=== PATIENT | male | born 1960 | race Caucasian/White ===

== ENCOUNTER 2017-05-15 16:08 | Inpatient (IN) | payer OTHER ==
[~2017-05-15] VITALS: Ht 185.4 cm; Wt 85.4 kg
[2017-05-15] MEDS: ACETAMINOPHEN 1000 MG/100 ML 100 ML IV SCH ×2 (15:30→23:55)
[~2017-05-15 16:08] MED LIST: DEXAMETHASONE SOD PHOS 4 MG/ML VIAL IV ONE; LACTATED RINGER'S 1000 ML INJ 1,000 ML IV ONE; LIDOCAINE HCL 1% PF 5 ML SYRINGE OTHER ONE; ONDANSETRON HCL 4 MG/2 ML VIAL IV ONE; PROPOFOL 200 MG/20 ML AMP IV ONE; ROCURONIUM INJ 50 MG/5 ML SYRINGE IV PUSH ONE; SUCCINYLCHOLINE CHLORIDE 200 MG/10 ML VIAL IV ONE
[2017-05-15] MEDS ORDERED: IOHEXOL 350 MG/ML 10 ML VIAL (for RAD DIAG) IVCONTRAST ONE (16:09)
[2017-05-15] MEDS ORDERED: MORPHINE SULFATE 4 MG/ML INJ ONE ×2 (16:18→20:24)
[2017-05-15 16:25] VITALS: O2SAT 97
[2017-05-15 16:37] LABS: AUTOMATED NEUTROPHIL # 7.9 TH/MM3 (1.8-7.7); BASOPHIL # 0.1 TH/MM3 (0-0.2); BASOPHIL % 0.7 % (0.0-2.0); EOSINOPHIL # 0.5 TH/MM3 (0-0.4); EOSINOPHIL % 4.1 % (0.0-4.0); HEMATOCRIT 39.1 % (39.0-51.0); HEMOGLOBIN 13.4 GM/DL (13.0-17.0); LYMPH % 26.1 % (9.0-44.0); LYMPHOCYTE # 3.3 TH/MM3 (1.0-4.8); MEAN CELL VOLUME 97.6 FL (80.0-100.0); MEAN CORPUSCULAR HEMOGLOBIN 33.5 PG (27.0-34.0); MEAN CORPUSCULAR HGB CONC 34.3 % (32.0-36.0); MEAN PLATELET VOLUME 7.3 FL (7.0-11.0); MONO % 7.7 % (0.0-8.0); NEUT % 61.4 % (16.0-70.0); PLATELET COUNT 294 TH/MM3 (150-450); WHITE BLOOD COUNT 12.8 TH/MM3 (4.0-11.0)
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
[2017-05-15] MEDS ORDERED: PROPOFOL 200 MG/20 ML AMP ONE (16:44)
[2017-05-15 16:46] LABS: PROTHROMBIN TIME - PATIENT 10.2 SEC (9.8-11.6)
[2017-05-15 16:51] VITALS: O2SAT 94
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
[2017-05-15] MEDS ORDERED: LIDOCAINE HCL 1% PF 30 ML VIAL ONE (17:01)
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
--- NOTE | 2017-05-15 17:40 | RADRPT ---
EXAM DATE/TIME: 05/15/2017 16:55 [facility] COMPARISON: CHEST SINGLE AP, May 15, 2017, 16:12. INDICATIONS : Left sided chest tube placement. MEDICAL HISTORY : None. SURGICAL HISTORY : None. ENCOUNTER: Subsequent ACUITY: 1 day PAIN SCORE: 10/10 LOCATION: Left chest FINDINGS: Left chest drainage tube has been placed with the tip projected at the upper medial chest. No pneumo thorax seen on this supine view of the chest. Several left rib fractures. Left clavicular and left scapular fractures. Mediastinal structures are in the midline. Both hemidiaphragms well delineated. Ill-defined areas of non-consolidative opacity in the upper and lower left lung. CONCLUSION: Interval placement of left chest tube with tip in the medial apex. No pneumothorax seen on this supine view. Kit Lopez MD on May 15, 2017 at 17:37 Board Certified Radiologist. This report was verified electronically.
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
[2017-05-15] MEDS ORDERED: MISCELLANEOUS NURSING INFORMATION XX SCH (17:45)
[2017-05-15] MEDS ORDERED: MAGNESIUM HYDROXIDE SUSP 30 ML CUP PO PRN (17:45)
[2017-05-15] MEDS ORDERED: BISACODYL 10 MG SUPP RECTAL PRN (17:45)
[2017-05-15] MEDS ORDERED: SENNOSIDES 8.6 MG TAB PO PRN (17:45)
[2017-05-15] MEDS ORDERED: CHLORHEXIDINE GLUCONATE 2 % 1 PACK (2 CLOTHS) TOP PRN (17:45)
[2017-05-15] MEDS ORDERED: ONDANSETRON HCL 4 MG/2 ML VIAL IV PUSH PRN (17:45)
[2017-05-15] MEDS ORDERED: BUPIVACAINE HCL PF 0.25% 30 ML VIAL ONE (18:10)
[2017-05-15] MEDS ORDERED: VANCOMYCIN HCL 1000 MG VIAL ONE (18:10)
[2017-05-15] MEDS ORDERED: HYDROmorphone HCL PF 2 MG/ML VIAL IV PRN (18:15)
[2017-05-15 18:25] VITALS: BP 138/68; PULSE 105; RESP 24; TEMP 98; O2SAT 95
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
[2017-05-15] MEDS ORDERED: GENTAMICIN SULFATE 80 MG/2 ML VIAL ONE (18:57)
[2017-05-15] MEDS ORDERED: SILVER SULFADIAZINE 1% CR 50 GM JAR TOPICAL ONE (19:00)
[2017-05-15] MEDS ORDERED: RESP: ALBUTEROL 2.5 MG/3 ML NEB (SCH) ONE (20:15)
[2017-05-15] MEDS ORDERED: MIDAZOLAM HCL 2 MG/2 ML VIAL ONE (20:24)
[2017-05-15] MEDS ORDERED: diphenhydrAMINE HCL 25 MG CAP PO PRN (20:30)
[2017-05-15] MEDS ORDERED: SODIUM CHLORIDE 0.9% FLUSH 10 ML FLUSH IV FLUSH PRN (20:30)
[2017-05-15] MEDS ORDERED: Post-op Orders (for Pharmacy) XX ONE (20:30)
--- NOTE | 2017-05-15 20:38 | HHI.PR ---
Immediate Post Op Note Procedure Date: May 15, 2017 Pre Op Diagnosis: Left ankle laceration Post Op Diagnosis: Left ankle laceration Surgeon: Gay Guerrero Ekg/Ecg Technician(s): None Procedure: Left ankle debridement and irrigation with laceration repair Findings: Subcutaneous avulsion off of plantar calcaneus Additional Information: None Complications: None Specimen(s) removed: None Estimated blood loss: Less than 5 cc Anesthesia: General Drains: None Patient to: PACU (Patient tolerated procedure and anesthesia well he was transferred to PACU with vital signs stable and neurovascular status intact to the left foot) Patient Condition: Gay Estrada DPM May 15, 2017 20:38
[2017-05-15] MEDS ORDERED: DO NOT ADM ANY ANTICOAGULANT DRUGS PRN (20:45)
[2017-05-15 21:00] VITALS: BP 144/73; PULSE 98; RESP 18; TEMP 98.7; O2SAT 96
[2017-05-15] MEDS ORDERED: SODIUM CHLOR 0.9% 1000 ML INJ 1,000 ML IV ONE (21:00)
[2017-05-15] MEDS: FAMOTIDINE 20 MG/2 ML VIAL IV PUSH SCH (21:00)
[2017-05-15] MEDS: DOCUSATE SODIUM 50 MG/SENNA 8.6 MG TAB PO SCH (21:22)
[2017-05-15] MEDS: SODIUM CHLOR 0.9% 1000 ML INJ 1,000 ML IV SCH (21:23)
[2017-05-15 22:00] VITALS: PULSE 97
[2017-05-15] MEDS: levETIRAcetam INJ 500 MG in SODIUM CHLORIDE 0.9% INJ 100 ML IV SCH (22:05)
[2017-05-15] MEDS: SODIUM CHLORIDE 0.9% FLUSH 10 ML FLUSH IV FLUSH SCH (22:06)
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
[2017-05-16] VITALS (9 sets, daily range): BP systolic 120–136; BP diastolic 64–77; PULSE 90–108; RESP 12–20; TEMP 98.3–99.2; O2SAT 93–98
[2017-05-16] MEDS: HYDROmorphone HCL PF 2 MG/ML VIAL IV PRN ×4 (03:06→20:22)
[2017-05-16] MEDS: GENTAMICIN 80 MG PREMIX 100 ML IV SCH ×3 (03:06→18:31)
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
[2017-05-16] MEDS: SODIUM CHLOR 0.9% 1000 ML INJ 1,000 ML IV SCH ×2 (04:00→12:27)
[2017-05-16] MEDS ORDERED: CHLORHEXIDINE GLUCONATE 2 % 1 PACK (2 CLOTHS) TOP SCH (04:00)
[2017-05-16] MEDS: ACETAMINOPHEN 1000 MG/100 ML 100 ML IV SCH ×2 (06:00→11:24)
--- NOTE | 2017-05-16 06:23 | RADRPT ---
EXAM DATE/TIME: 05/16/2017 05:44 [facility] COMPARISON: CT BRAIN W/O CONTRAST, May 15, 2017, 16:30. INDICATIONS : Follow up intracerebral hemorrhage. RADIATION DOSE: 52.99 CTDIvol (mGy) MEDICAL HISTORY : Non-responsive. SURGICAL HISTORY : Non-responsive. ENCOUNTER: Subsequent ACUITY: 1 day PAIN SCALE: Non-responsive LOCATION: cranial TECHNIQUE: Multiple contiguous axial images were obtained of the head. Using automated exposure control and adj ustment of the mA and/or kV according to patient size, radiation dose was kept as low as reasonably a chievable to obtain optimal diagnostic quality images. DICOM format image data is available electro nically for review and comparison. FINDINGS: Right temporal parenchymal hemorrhagic contusion is noted, a small amount of blood in the sylvian fis sure on the right and in the cortical sulci on the right characteristic of subarachnoid hemorrhage. T here is no midline shift. Left zygomatic arch, anterior wall temporomandibular joint, left temporal b one and left parietal calvarial fractures again seen. There is fluid in left mastoid air cells. CONCLUSION: Subarachnoid hemorrhage is visualized on the right with stable right temporal bleed. Miguel Sandra MD on May 16, 2017 at 6:19 Board Certified Radiologist. This report was verified electronically.
[2017-05-16 07:10] LABS: PROTHROMBIN TIME - PATIENT 10.6 SEC (9.8-11.6)
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
[2017-05-16] MEDS: FAMOTIDINE 20 MG/2 ML VIAL IV PUSH SCH ×2 (09:57→20:20)
[2017-05-16] MEDS: ALBUTEROL SULFATE 90 MCG/ACT HFA 8 GM INHALER INH PRN ×2 (09:57→14:30)
[2017-05-16] MEDS: DOCUSATE SODIUM 50 MG/SENNA 8.6 MG TAB PO SCH ×2 (09:57→20:20)
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
[2017-05-16] MEDS ORDERED: oxyCODONE/ACETAMINOPHEN 5 MG/325 MG TAB PO PRN (10:00)
[2017-05-16] MEDS: SODIUM CHLORIDE 0.9% FLUSH 10 ML FLUSH IV FLUSH SCH ×2 (10:03→20:21)
[2017-05-16] MEDS: levETIRAcetam INJ 500 MG in SODIUM CHLORIDE 0.9% INJ 100 ML IV SCH ×2 (10:47→20:21)
[2017-05-16] MEDS: METHOCARBAMOL 500 MG TAB PO SCH ×2 (10:55→18:30)
[2017-05-16] MEDS: LIDOCAINE HCL 5% PATCH T-DERMAL SCH (11:24)
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
[2017-05-16 14:20] LABS: AUTOMATED NEUTROPHIL # 5.4 TH/MM3 (1.8-7.7); BASOPHIL % 0.3 % (0.0-2.0); EOSINOPHIL % 0.5 % (0.0-4.0); HEMATOCRIT 34.1 % (39.0-51.0); HEMOGLOBIN 11.8 GM/DL (13.0-17.0); LYMPH % 15.9 % (9.0-44.0); LYMPHOCYTE # 1.2 TH/MM3 (1.0-4.8); MEAN CELL VOLUME 97.3 FL (80.0-100.0); MEAN CORPUSCULAR HEMOGLOBIN 33.8 PG (27.0-34.0); MEAN CORPUSCULAR HGB CONC 34.7 % (32.0-36.0); MEAN PLATELET VOLUME 7.5 FL (7.0-11.0); MONO % 9.6 % (0.0-8.0); MONOCYTE # 0.7 TH/MM3 (0-0.9); NEUT % 73.7 % (16.0-70.0); PLATELET COUNT 230 TH/MM3 (150-450); RED BLOOD COUNT 3.51 MIL/MM3 (4.50-5.90); WHITE BLOOD COUNT 7.3 TH/MM3 (4.0-11.0)
[2017-05-16] MEDS: oxyCODONE/ACETAMINOPHEN 10 MG/325 MG TAB PO PRN ×3 (14:30→22:26)
[2017-05-16 14:36] LABS: BICARBONATE 22.8 MEQ/L (21.0-32.0); CALCIUM 8.1 MG/DL (8.5-10.1); CREATININE 0.73 MG/DL (0.60-1.30); MAGNESIUM 2.1 MG/DL (1.5-2.5)
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
[2017-05-16] MEDS: MAGNESIUM HYDROXIDE SUSP 30 ML CUP PO SCH (20:20)
[2017-05-16] MEDS ORDERED: REMOVE OLD LIDOCAINE PATCH T-DERMAL SCH (21:00)
[2017-05-17] VITALS (7 sets, daily range): BP systolic 111–148; BP diastolic 67–77; PULSE 92–100; RESP 17–18; TEMP 97.2–98.3; O2SAT 92–95
[2017-05-17] MEDS: HYDROmorphone HCL PF 2 MG/ML VIAL IV PRN ×4 (00:06→20:50)
[2017-05-17] MEDS: METHOCARBAMOL 500 MG TAB PO SCH ×3 (03:08→17:35)
[2017-05-17] MEDS: oxyCODONE/ACETAMINOPHEN 10 MG/325 MG TAB PO PRN ×4 (03:09→23:10)
[2017-05-17] MEDS ORDERED: CHLORHEXIDINE GLUCONATE 2 % 1 PACK (2 CLOTHS) TOPICAL PRN (05:30)
[2017-05-17] MEDS ORDERED: SODIUM CHLORID 0.9% 500 ML IV PRN (05:30)
[2017-05-17] MEDS ORDERED: LACTATED RINGER'S 1000 ML IV PRN (05:30)
[2017-05-17] MEDS ORDERED: POVIDONE IODINE 5% (ANTISEPSIS KIT) 4 APPLICATIONS EACH NARE PRN (05:30)
--- NOTE | 2017-05-17 06:29 | RADRPT ---
EXAM DATE/TIME: 05/17/2017 05:23 [facility] COMPARISON: CHEST SINGLE AP, May 16, 2017, 2:59. INDICATIONS : Short of breath, pain left chest. Evaluate left chest tube MEDICAL HISTORY : pneumothorax, rib fractures SURGICAL HISTORY : chest tube ENCOUNTER: Subsequent ACUITY: 3 days PAIN SCORE: 9/10 LOCATION: Left chest FINDINGS: Left-sided chest tube again seen. Tiny left apical pneumothorax. Patchy basilar airspace disease. Car diomegaly. There are fractures of the left third and fifth posterior ribs. CONCLUSION: Tiny left apical pneumothorax. Miguel Sandra MD on May 17, 2017 at 6:27 Board Certified Radiologist. This report was verified electronically.
[2017-05-17] MEDS: FAMOTIDINE 20 MG/2 ML VIAL IV PUSH SCH ×2 (08:07→20:29)
[2017-05-17] MEDS: DOCUSATE SODIUM 50 MG/SENNA 8.6 MG TAB PO SCH ×2 (08:08→20:32)
[2017-05-17] MEDS: LIDOCAINE HCL 5% PATCH T-DERMAL SCH (08:08)
[2017-05-17] MEDS: SODIUM CHLORIDE 0.9% FLUSH 10 ML FLUSH IV FLUSH SCH ×2 (08:09→20:29)
[2017-05-17] MEDS: levETIRAcetam INJ 500 MG in SODIUM CHLORIDE 0.9% INJ 100 ML IV SCH ×2 (08:09→20:29)
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
[2017-05-17] MEDS: MAGNESIUM HYDROXIDE SUSP 30 ML CUP PO SCH ×2 (08:46→20:30)
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
[2017-05-17] MEDS: fentaNYL 50 MCG/HR PATCH T-DERMAL SCH (14:47)
[2017-05-17 21:15] LABS: AUTOMATED NEUTROPHIL # 5.8 TH/MM3 (1.8-7.7); BASOPHIL # 0.1 TH/MM3 (0-0.2); BASOPHIL % 0.7 % (0.0-2.0); EOSINOPHIL # 0.2 TH/MM3 (0-0.4); EOSINOPHIL % 2.1 % (0.0-4.0); HEMATOCRIT 32.2 % (39.0-51.0); LYMPH % 15.3 % (9.0-44.0); LYMPHOCYTE # 1.2 TH/MM3 (1.0-4.8); MEAN CELL VOLUME 97.7 FL (80.0-100.0); MEAN CORPUSCULAR HEMOGLOBIN 33.4 PG (27.0-34.0); MEAN CORPUSCULAR HGB CONC 34.2 % (32.0-36.0); MEAN PLATELET VOLUME 7.3 FL (7.0-11.0); MONO % 8.5 % (0.0-8.0); MONOCYTE # 0.7 TH/MM3 (0-0.9); NEUT % 73.4 % (16.0-70.0); PLATELET COUNT 216 TH/MM3 (150-450); RED CELL DISTRIBUTION WIDTH 13.3 % (11.6-17.2)
[2017-05-17 21:30] LABS: ALBUMIN 2.7 GM/DL (3.4-5.0); AST (GOT) 110 U/L (15-37); BICARBONATE 27.9 MEQ/L (21.0-32.0); BLOOD UREA NITROGEN 8 MG/DL (7-18); CALCIUM 8.3 MG/DL (8.5-10.1); CHLORIDE 103 MEQ/L (98-107); CREATININE 0.81 MG/DL (0.60-1.30); GLOMERULAR FILTRATION RATE 99 ML/MIN (>89); GLUCOSE,RANDOM 131 MG/DL (74-106); SODIUM (NA) 136 MEQ/L (136-145)
[2017-05-17 21:32] LABS: ALT (GPT) 46 U/L (12-78)
[2017-05-17 21:34] LABS: ALKALINE PHOSPHATASE 56 U/L (45-117); TOTAL BILIRUBIN ADULT 0.5 MG/DL (0.2-1.0)
[2017-05-18] VITALS (11 sets, daily range): BP systolic 117–138; BP diastolic 58–70; PULSE 90–104; RESP 17–20; TEMP 97–98.8; O2SAT 92–95
[2017-05-18] MEDS: METHOCARBAMOL 500 MG TAB PO SCH ×3 (03:26→18:31)
--- NOTE | 2017-05-18 05:52 | RADRPT ---
EXAM DATE/TIME: 05/18/2017 05:09 [facility] COMPARISON: CHEST SINGLE AP, May 17, 2017, 5:23. INDICATIONS : Short of breath. MEDICAL HISTORY : pneumothorax, rib fractures SURGICAL HISTORY : chest tube. ENCOUNTER: Subsequent ACUITY: 1 week PAIN SCORE: 0/10 LOCATION: Bilateral chest FINDINGS: Left sided chest tube and patchy bilateral airspace disease again seen. I do not see a pneumothorax. Cardiomegaly. CONCLUSION: No significant change has occurred. Miguel Sandra MD on May 18, 2017 at 5:50 Board Certified Radiologist. This report was verified electronically.
[2017-05-18 05:55] LABS: BASOPHIL % 0.4 % (0.0-2.0); EOSINOPHIL # 0.1 TH/MM3 (0-0.4); EOSINOPHIL % 1.4 % (0.0-4.0); HEMATOCRIT 32.2 % (39.0-51.0); HEMOGLOBIN 11.1 GM/DL (13.0-17.0); LYMPH % 9.6 % (9.0-44.0); LYMPHOCYTE # 0.9 TH/MM3 (1.0-4.8); MEAN CELL VOLUME 97.9 FL (80.0-100.0); MEAN CORPUSCULAR HEMOGLOBIN 33.8 PG (27.0-34.0); MEAN CORPUSCULAR HGB CONC 34.5 % (32.0-36.0); MEAN PLATELET VOLUME 6.9 FL (7.0-11.0); MONO % 6.2 % (0.0-8.0); MONOCYTE # 0.6 TH/MM3 (0-0.9); NEUT % 82.4 % (16.0-70.0); PLATELET COUNT 215 TH/MM3 (150-450); RED BLOOD COUNT 3.29 MIL/MM3 (4.50-5.90); RED CELL DISTRIBUTION WIDTH 13.3 % (11.6-17.2); WHITE BLOOD COUNT 9.7 TH/MM3 (4.0-11.0)
[2017-05-18 06:17] LABS: ALBUMIN 2.7 GM/DL (3.4-5.0); ALT (GPT) 44 U/L (12-78); AST (GOT) 102 U/L (15-37); BICARBONATE 28.6 MEQ/L (21.0-32.0); BLOOD UREA NITROGEN 9 MG/DL (7-18); CALCIUM 8.4 MG/DL (8.5-10.1); CHLORIDE 103 MEQ/L (98-107); CREATININE 0.72 MG/DL (0.60-1.30); GLOMERULAR FILTRATION RATE 113 ML/MIN (>89); GLUCOSE,RANDOM 120 MG/DL (74-106); SODIUM (NA) 137 MEQ/L (136-145)
[2017-05-18 06:20] LABS: ALKALINE PHOSPHATASE 55 U/L (45-117); TOTAL BILIRUBIN ADULT 0.6 MG/DL (0.2-1.0); TOTAL PROTEIN 5.8 GM/DL (6.4-8.2)
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
--- NOTE | 2017-05-18 08:07 | PD.POD ---
Subjective Podiatric Problems LATE ENTRY, PT SEEN 05/17/17 @ 1900 Pt is s/p left foot/ankle wound washout and closure by on 05/15/17. He states that he only has mild pain in the foot but feels like it ''goes to sleep'' easily when he rests in a dependent position. Pain score: 3 Past Med/Surg/Social History Social History Smoking Status: Former Smoker Objective Vital Signs Vital Signs Date Time Temp Pulse Resp B/P (MAP) Pulse Ox O2 Delivery O2 Flow Rate FiO2 05/18/17 04:30 98.0 103 20 117/58 (77) 93 05/18/17 00:40 97.0 104 19 138/70 (92) 92 05/18/17 00:03 102 05/17/17 20:30 Nasal Cannula 3.00 05/17/17 20:15 97.2 99 18 111/69 (83) 95 05/17/17 20:09 99 05/17/17 17:44 94 Nasal Cannula 2.00 05/17/17 16:00 97.7 99 17 115/67 (83) 94 05/17/17 15:47 16 05/17/17 13:53 16 05/17/17 12:33 16 05/17/17 12:00 98.3 100 17 148/70 (96) 95 Coded Allergies: No Known Allergies (Unverified , 05/15/17) Physical Exam Remarks Circumferential laceration to the left posterior heel from just anterior to the med mall to just anterior to the lat mall. All sutures intact and skin edges are well coapted. Mild maceration at borders. No erythema, no drainage. Assessment & Plan A/P 1) left heel laceration closure, 05/15/17 -Keep dressing clean, dry, and intact -Posterior splint ordered to avoid suture rupture -NWBing LLE -Keep LLE elevate while at rest -Will need bandage changed weekly -f/u with 5-7 days after d/c Akua Devine DPM May 18, 2017 08:07
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
[2017-05-18] MEDS: BACITRACIN TOP OINT 15 GM TUBE TOPICAL SCH ×2 (09:00→19:41)
[2017-05-18] MEDS: SODIUM CHLORIDE 0.9% FLUSH 10 ML FLUSH IV FLUSH SCH ×2 (09:00→19:42)
[2017-05-18] MEDS: DOCUSATE SODIUM 50 MG/SENNA 8.6 MG TAB PO SCH ×2 (09:18→19:41)
[2017-05-18] MEDS: MAGNESIUM HYDROXIDE SUSP 30 ML CUP PO SCH ×2 (09:19→19:41)
[2017-05-18] MEDS: oxyCODONE/ACETAMINOPHEN 10 MG/325 MG TAB PO PRN ×2 (09:19→18:30)
[2017-05-18] MEDS: levETIRAcetam 500 MG TAB PO SCH ×2 (09:19→19:41)
[2017-05-18] MEDS: FAMOTIDINE 20 MG TAB PO SCH ×2 (09:22→19:41)
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
[2017-05-18] MEDS: ENOXAPARIN SODIUM 30 MG/0.3 ML SYRINGE SQ SCH (14:33)
[2017-05-19] VITALS (8 sets, daily range): BP systolic 121–134; BP diastolic 60–63; PULSE 68–101; RESP 17–18; TEMP 97.2–98.9; O2SAT 95–97
[2017-05-19] MEDS: METHOCARBAMOL 500 MG TAB PO SCH ×3 (02:09→18:01)
[2017-05-19] MEDS: oxyCODONE/ACETAMINOPHEN 10 MG/325 MG TAB PO PRN ×5 (02:09→22:01)
[2017-05-19] MEDS: ENOXAPARIN SODIUM 30 MG/0.3 ML SYRINGE SQ SCH ×2 (02:09→14:00)
[2017-05-19 04:25] LABS: AUTOMATED NEUTROPHIL # 5.9 TH/MM3 (1.8-7.7); BASOPHIL % 0.6 % (0.0-2.0); EOSINOPHIL # 0.3 TH/MM3 (0-0.4); HEMATOCRIT 29.8 % (39.0-51.0); HEMOGLOBIN 10.3 GM/DL (13.0-17.0); LYMPH % 12.4 % (9.0-44.0); MEAN CELL VOLUME 97.4 FL (80.0-100.0); MEAN CORPUSCULAR HEMOGLOBIN 33.7 PG (27.0-34.0); MEAN CORPUSCULAR HGB CONC 34.6 % (32.0-36.0); MEAN PLATELET VOLUME 7.1 FL (7.0-11.0); MONO % 7.2 % (0.0-8.0); MONOCYTE # 0.6 TH/MM3 (0-0.9); NEUT % 75.8 % (16.0-70.0); PLATELET COUNT 209 TH/MM3 (150-450); RED BLOOD COUNT 3.06 MIL/MM3 (4.50-5.90); RED CELL DISTRIBUTION WIDTH 12.9 % (11.6-17.2); WHITE BLOOD COUNT 7.7 TH/MM3 (4.0-11.0)
[2017-05-19 04:49] LABS: ALBUMIN 2.4 GM/DL (3.4-5.0); AST (GOT) 81 U/L (15-37); BLOOD UREA NITROGEN 8 MG/DL (7-18); CALCIUM 8.3 MG/DL (8.5-10.1); CHLORIDE 100 MEQ/L (98-107); CREATININE 0.58 MG/DL (0.60-1.30); GLOMERULAR FILTRATION RATE 145 ML/MIN (>89); GLUCOSE,RANDOM 127 MG/DL (74-106); SODIUM (NA) 136 MEQ/L (136-145)
[2017-05-19 04:52] LABS: ALKALINE PHOSPHATASE 54 U/L (45-117); ALT (GPT) 47 U/L (12-78); TOTAL BILIRUBIN ADULT 0.6 MG/DL (0.2-1.0); TOTAL PROTEIN 5.7 GM/DL (6.4-8.2)
--- NOTE | 2017-05-19 07:17 | RADRPT ---
EXAM DATE/TIME: 05/19/2017 06:11 [place] COMPARISON: CHEST SINGLE AP, May 18, 2017, 5:09. INDICATIONS : Short of breath, evaluate left side chest tube MEDICAL HISTORY : pneumothorax, rib fractures SURGICAL HISTORY : chest tube ENCOUNTER: Subsequent ACUITY: 1 week PAIN SCORE: 5/10 LOCATION: Bilateral chest FINDINGS: A single view of the chest demonstrates bilateral patchy infiltrates are stable. There is a left-side d chest tube with its tip near the apex. No visible pneumothorax.. The cardiomediastinal contours ar e unremarkable. Osseous structures are intact. CONCLUSION: Patchy infiltrates throughout the lungs. Chest tube in good position. No evidence of pneumothorax . Miguel Ron MD on May 19, 2017 at 7:15 Board Certified Radiologist. This report was verified electronically.
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
[2017-05-19] MEDS: DOCUSATE SODIUM 50 MG/SENNA 8.6 MG TAB PO SCH ×2 (08:38→21:55)
[2017-05-19] MEDS: levETIRAcetam 500 MG TAB PO SCH ×2 (08:38→21:55)
[2017-05-19] MEDS: FAMOTIDINE 20 MG TAB PO SCH ×2 (08:38→21:55)
[2017-05-19] MEDS: MAGNESIUM HYDROXIDE SUSP 30 ML CUP PO SCH ×2 (08:39→21:55)
[2017-05-19] MEDS: SODIUM CHLORIDE 0.9% FLUSH 10 ML FLUSH IV FLUSH SCH ×2 (08:44→21:56)
[2017-05-19] MEDS: BACITRACIN TOP OINT 15 GM TUBE TOPICAL SCH ×2 (08:45→21:56)
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
[2017-05-19] MEDS: RESP: ALBUTEROL 2.5 MG/IPRATROPIUM 0.5 MG NEB (SCH) NEB ×2 (16:19→19:31)
[2017-05-20] VITALS (10 sets, daily range): BP systolic 130–145; BP diastolic 60–83; PULSE 81–92; RESP 17–20; TEMP 97.6–98.7; O2SAT 93–98
[2017-05-20] MEDS: ENOXAPARIN SODIUM 30 MG/0.3 ML SYRINGE SQ SCH ×2 (02:23→16:53)
[2017-05-20] MEDS: METHOCARBAMOL 500 MG TAB PO SCH ×3 (02:23→19:12)
[2017-05-20] MEDS ORDERED: ENDO10TA8 PO (06:42)
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
--- NOTE | 2017-05-20 07:00 | RADRPT ---
EXAM DATE/TIME: 05/20/2017 06:07 [facility] COMPARISON: CHEST SINGLE AP, May 19, 2017, 6:11. INDICATIONS : Follow up chest tube removal from left side MEDICAL HISTORY : pneumothorax, rib fractures, left shoulder SURGICAL HISTORY : chest tube ENCOUNTER: Subsequent ACUITY: 1 week PAIN SCORE: 8/10 LOCATION: Bilateral chest FINDINGS: There is a tiny left apical pneumothorax present with overall improvement in aeration of the lungs wi th mild interstitial process remaining. Previously seen left chest tube has been removed. The rest of the examination has not significantly changed. CONCLUSION: There is a tiny left apical pneumothorax. Shannan Arroyo MD on May 20, 2017 at 6:58 Board Certified Radiologist. This report was verified electronically.
[2017-05-20] MEDS: RESP: ALBUTEROL 2.5 MG/IPRATROPIUM 0.5 MG NEB (SCH) NEB ×4 (08:00→20:39)
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
[2017-05-20] MEDS: DOCUSATE SODIUM 50 MG/SENNA 8.6 MG TAB PO SCH ×2 (09:01→20:24)
[2017-05-20] MEDS: MAGNESIUM HYDROXIDE SUSP 30 ML CUP PO SCH ×2 (09:01→20:25)
[2017-05-20] MEDS: FAMOTIDINE 20 MG TAB PO SCH ×2 (09:01→20:24)
[2017-05-20] MEDS: levETIRAcetam 500 MG TAB PO SCH ×2 (09:01→20:24)
[2017-05-20] MEDS: BACITRACIN TOP OINT 15 GM TUBE TOPICAL SCH ×2 (09:02→20:32)
[2017-05-20] MEDS: SODIUM CHLORIDE 0.9% FLUSH 10 ML FLUSH IV FLUSH SCH ×2 (09:02→20:31)
--- NOTE | 2017-05-20 10:51 | RADRPT ---
EXAM DATE/TIME: 05/20/2017 10:37 [facility] COMPARISON: CT BRAIN W/O CONTRAST, May 16, 2017, 5:44. INDICATIONS : Subdural hematoma. RADIATION DOSE: 56.35 CTDIvol (mGy) MEDICAL HISTORY : Subdural hematoma. SURGICAL HISTORY : Hernia repair. ENCOUNTER: Subsequent ACUITY: 4 - 6 days PAIN SCALE: 2/10 LOCATION: Bilateral cranial TECHNIQUE: Multiple contiguous axial images were obtained of the head. Using automated exposure control and adj ustment of the mA and/or kV according to patient size, radiation dose was kept as low as reasonably a chievable to obtain optimal diagnostic quality images. DICOM format image data is available electro nically for review and comparison. FINDINGS: Problem specific findings: The examination demonstrates scattered foci of intraparenchymal hemorrhage involving the right tempor al lobe. These are compared to the previous study dated 05/16/17 and are similar in appearance. There is some increasing edema around these. No definite new areas of hemorrhage are seen. The ventricles a re normal in size and configuration. There is only minimal mass effect associated with the area of co ntusion. The appearance of the posterior fossa is unremarkable. The osseous structures of the skull demonstrate a minimally displaced fracture involving the left tem poral bone. There is fracture of the zygomatic arch on the left as well. CONCLUSION: 1. Intraparenchymal contusion involving the right temporal cortex with minimal subarachnoid hemorrhag e. This is relatively stable compared to previous exam. There has been a slight increase in the amoun t of edema surrounding this. 2. Known fractures involving the left temporal bone and zygomatic arch on the left. Roman Galicia MD on May 20, 2017 at 10:47 Board Certified Radiologist. This report was verified electronically.
[2017-05-20] MEDS: oxyCODONE/ACETAMINOPHEN 10 MG/325 MG TAB PO PRN ×2 (12:36→20:24)
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
[2017-05-20] MEDS: REMOVE OLD DURAGESIC (FENTANYL) PATCH T-DERMAL SCH (15:00)
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
[2017-05-20] MEDS: fentaNYL 50 MCG/HR PATCH T-DERMAL SCH (16:53)
[2017-05-21] VITALS (8 sets, daily range): BP systolic 129–139; BP diastolic 64–76; PULSE 76–86; RESP 18–20; TEMP 95.7–98.7; O2SAT 92–95
[2017-05-21] MEDS: METHOCARBAMOL 500 MG TAB PO SCH ×3 (03:02→20:26)
[2017-05-21] MEDS: ENOXAPARIN SODIUM 30 MG/0.3 ML SYRINGE SQ SCH ×2 (03:03→15:50)
[2017-05-21 04:34] LABS: BASOPHIL # 0.1 TH/MM3 (0-0.2); BASOPHIL % 0.6 % (0.0-2.0); EOSINOPHIL # 0.3 TH/MM3 (0-0.4); EOSINOPHIL % 4.2 % (0.0-4.0); HEMOGLOBIN 10.6 GM/DL (13.0-17.0); LYMPH % 11.6 % (9.0-44.0); LYMPHOCYTE # 0.9 TH/MM3 (1.0-4.8); MEAN CELL VOLUME 96.5 FL (80.0-100.0); MEAN CORPUSCULAR HGB CONC 34.2 % (32.0-36.0); MEAN PLATELET VOLUME 6.7 FL (7.0-11.0); MONO % 9.6 % (0.0-8.0); MONOCYTE # 0.8 TH/MM3 (0-0.9); PLATELET COUNT 291 TH/MM3 (150-450); RED BLOOD COUNT 3.21 MIL/MM3 (4.50-5.90); RED CELL DISTRIBUTION WIDTH 12.9 % (11.6-17.2); WHITE BLOOD COUNT 8.1 TH/MM3 (4.0-11.0)
[2017-05-21 04:58] LABS: BICARBONATE 28.5 MEQ/L (21.0-32.0); CALCIUM 8.7 MG/DL (8.5-10.1); CREATININE 0.65 MG/DL (0.60-1.30)
--- NOTE | 2017-05-21 06:47 | RADRPT ---
EXAM DATE/TIME: 05/21/2017 06:20 [place] COMPARISON: CHEST SINGLE AP, May 20, 2017, 6:07. INDICATIONS : Pneumothorax. MEDICAL HISTORY : Pneumothorax, rib fractures. SURGICAL HISTORY : chest tube ENCOUNTER: Subsequent ACUITY: 1 week PAIN SCORE: 9/10 LOCATION: Left chest FINDINGS: Multiple rib fractures are again seen without definite pneumothorax. There is hazy opacities in both lung bases part of it is technical due to motion, however mild interstitial process is difficult to e xclude. Slight left lung base consolidation is also difficult to exclude. CONCLUSION: No definite pneumothorax with haziness involving the lung bases as above. Shannan Arroyo MD on May 21, 2017 at 6:44 Board Certified Radiologist. This report was verified electronically.
[2017-05-21] MEDS: FAMOTIDINE 20 MG TAB PO SCH ×2 (08:40→21:52)
[2017-05-21] MEDS: DOCUSATE SODIUM 50 MG/SENNA 8.6 MG TAB PO SCH ×2 (08:40→21:52)
[2017-05-21] MEDS: MAGNESIUM HYDROXIDE SUSP 30 ML CUP PO SCH ×2 (08:40→21:00)
[2017-05-21] MEDS: levETIRAcetam 500 MG TAB PO SCH ×2 (08:40→21:52)
[2017-05-21] MEDS: RESP: ALBUTEROL 2.5 MG/IPRATROPIUM 0.5 MG NEB (SCH) NEB ×4 (08:40→20:04)
[2017-05-21] MEDS: SODIUM CHLORIDE 0.9% FLUSH 10 ML FLUSH IV FLUSH SCH ×2 (08:41→21:57)
[2017-05-21] MEDS: BACITRACIN TOP OINT 15 GM TUBE TOPICAL SCH ×2 (08:45→21:57)
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
[2017-05-21] MEDS: oxyCODONE/ACETAMINOPHEN 10 MG/325 MG TAB PO PRN ×2 (11:44→15:52)
[2017-05-22] VITALS (9 sets, daily range): BP systolic 120–137; BP diastolic 64–71; PULSE 72–88; RESP 17–18; TEMP 96.7–98.2; O2SAT 92–95
[2017-05-22] MEDS: METHOCARBAMOL 500 MG TAB PO SCH ×3 (03:04→18:42)
[2017-05-22] MEDS: ENOXAPARIN SODIUM 30 MG/0.3 ML SYRINGE SQ SCH ×2 (03:04→13:10)
[2017-05-22] MEDS: RESP: ALBUTEROL 2.5 MG/IPRATROPIUM 0.5 MG NEB (SCH) NEB ×4 (08:00→19:34)
[2017-05-22] MEDS: SODIUM CHLORIDE 0.9% FLUSH 10 ML FLUSH IV FLUSH SCH ×2 (09:00→20:27)
[2017-05-22] MEDS: levETIRAcetam 500 MG TAB PO SCH ×2 (09:13→20:19)
[2017-05-22] MEDS: oxyCODONE/ACETAMINOPHEN 10 MG/325 MG TAB PO PRN ×3 (09:13→18:40)
[2017-05-22] MEDS: DOCUSATE SODIUM 50 MG/SENNA 8.6 MG TAB PO SCH ×2 (09:13→20:28)
[2017-05-22] MEDS: FAMOTIDINE 20 MG TAB PO SCH ×2 (09:13→20:19)
[2017-05-22] MEDS: MAGNESIUM HYDROXIDE SUSP 30 ML CUP PO SCH ×2 (09:14→20:27)
[2017-05-22] MEDS: BACITRACIN TOP OINT 15 GM TUBE TOPICAL SCH ×2 (09:14→20:28)
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
[2017-05-23] MEDS: ENOXAPARIN SODIUM 30 MG/0.3 ML SYRINGE SQ SCH ×2 (02:51→14:11)
[2017-05-23] MEDS: METHOCARBAMOL 500 MG TAB PO SCH ×3 (02:51→18:10)
[2017-05-23] MEDS: oxyCODONE/ACETAMINOPHEN 10 MG/325 MG TAB PO PRN ×4 (02:52→16:12)
[2017-05-23 05:16] LABS: AUTOMATED NEUTROPHIL # 7.1 TH/MM3 (1.8-7.7); BASOPHIL % 0.4 % (0.0-2.0); EOSINOPHIL # 0.6 TH/MM3 (0-0.4); EOSINOPHIL % 6.4 % (0.0-4.0); HEMATOCRIT 32.7 % (39.0-51.0); HEMOGLOBIN 11.4 GM/DL (13.0-17.0); LYMPH % 12.7 % (9.0-44.0); LYMPHOCYTE # 1.3 TH/MM3 (1.0-4.8); MEAN CELL VOLUME 95.8 FL (80.0-100.0); MEAN CORPUSCULAR HEMOGLOBIN 33.5 PG (27.0-34.0); MEAN CORPUSCULAR HGB CONC 34.9 % (32.0-36.0); MEAN PLATELET VOLUME 6.7 FL (7.0-11.0); MONOCYTE # 0.9 TH/MM3 (0-0.9); NEUT % 71.5 % (16.0-70.0); PLATELET COUNT 374 TH/MM3 (150-450); RED BLOOD COUNT 3.41 MIL/MM3 (4.50-5.90); RED CELL DISTRIBUTION WIDTH 13.1 % (11.6-17.2)
[2017-05-23 05:48] LABS: ALBUMIN 2.7 GM/DL (3.4-5.0); ALT (GPT) 122 U/L (12-78); AST (GOT) 60 U/L (15-37); BICARBONATE 25.5 MEQ/L (21.0-32.0); BLOOD UREA NITROGEN 14 MG/DL (7-18); CALCIUM 8.7 MG/DL (8.5-10.1); CHLORIDE 102 MEQ/L (98-107); CREATININE 0.68 MG/DL (0.60-1.30); GLOMERULAR FILTRATION RATE 121 ML/MIN (>89); GLUCOSE,RANDOM 109 MG/DL (74-106); SODIUM (NA) 136 MEQ/L (136-145)
[2017-05-23 05:49] LABS: ALKALINE PHOSPHATASE 96 U/L (45-117); TOTAL BILIRUBIN ADULT 0.6 MG/DL (0.2-1.0); TOTAL PROTEIN 6.2 GM/DL (6.4-8.2)
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
[2017-05-23] MEDS: RESP: ALBUTEROL 2.5 MG/IPRATROPIUM 0.5 MG NEB (SCH) NEB ×2 (07:45→11:48)
[2017-05-23 08:00] VITALS: BP 120/69; PULSE 81; RESP 15; TEMP 97; O2SAT 93
[2017-05-23] MEDS: MAGNESIUM HYDROXIDE SUSP 30 ML CUP PO SCH ×2 (08:18→20:20)
[2017-05-23] MEDS: DOCUSATE SODIUM 50 MG/SENNA 8.6 MG TAB PO SCH ×2 (08:18→20:20)
[2017-05-23] MEDS: BACITRACIN TOP OINT 15 GM TUBE TOPICAL SCH ×2 (08:18→20:20)
[2017-05-23] MEDS: levETIRAcetam 500 MG TAB PO SCH ×2 (08:18→20:19)
[2017-05-23] MEDS: FAMOTIDINE 20 MG TAB PO SCH ×2 (08:18→20:19)
[2017-05-23] MEDS: SODIUM CHLORIDE 0.9% FLUSH 10 ML FLUSH IV FLUSH SCH ×2 (08:19→20:20)
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
[2017-05-23] MEDS ORDERED: METH500T3 PO (11:13)
[2017-05-23] MEDS ORDERED: MAGN30S PO (11:13)
[2017-05-23] MEDS ORDERED: PERI PO (11:13)
[2017-05-23] MEDS ORDERED: Lactulose Liq PO (11:13)
[2017-05-23] MEDS ORDERED: ENOX30P SQ (11:13)
[2017-05-23 12:00] VITALS: BP 120/55; PULSE 84; RESP 16; TEMP 98.8; O2SAT 94
[2017-05-23] MEDS: fentaNYL 50 MCG/HR PATCH T-DERMAL SCH (14:11)
[2017-05-23] MEDS: REMOVE OLD DURAGESIC (FENTANYL) PATCH T-DERMAL SCH (14:11)
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
[2017-05-23 16:00] VITALS: BP 134/73; PULSE 88; RESP 16; TEMP 97; O2SAT 94
[2017-05-23] MEDS: ACETAMINOPHEN 325 MG TAB PO PRN (20:19)
[2017-05-23 20:55] VITALS: BP 124/68; PULSE 77; RESP 17; TEMP 97.6; O2SAT 94
[2017-05-24] VITALS (7 sets, daily range): BP systolic 118–135; BP diastolic 55–76; PULSE 62–82; RESP 16–18; TEMP 97–98.8; O2SAT 92–97
[2017-05-24] MEDS: METHOCARBAMOL 500 MG TAB PO SCH ×3 (02:12→18:13)
[2017-05-24] MEDS: ENOXAPARIN SODIUM 30 MG/0.3 ML SYRINGE SQ SCH ×2 (02:14→13:17)
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
[2017-05-24] MEDS: oxyCODONE/ACETAMINOPHEN 10 MG/325 MG TAB PO PRN ×2 (09:00→13:17)
[2017-05-24] MEDS: levETIRAcetam 500 MG TAB PO SCH ×2 (09:00→20:38)
[2017-05-24] MEDS: DOCUSATE SODIUM 50 MG/SENNA 8.6 MG TAB PO SCH ×2 (09:01→20:38)
[2017-05-24] MEDS: BACITRACIN TOP OINT 15 GM TUBE TOPICAL SCH ×2 (09:01→20:38)
[2017-05-24] MEDS: SODIUM CHLORIDE 0.9% FLUSH 10 ML FLUSH IV FLUSH SCH ×2 (09:01→20:38)
[2017-05-24] MEDS: FAMOTIDINE 20 MG TAB PO SCH ×2 (09:01→20:38)
[2017-05-24] MEDS: MAGNESIUM HYDROXIDE SUSP 30 ML CUP PO SCH ×2 (09:01→20:38)
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
[2017-05-24] MEDS: ACETAMINOPHEN 325 MG TAB PO PRN (20:35)
[2017-05-25] VITALS (7 sets, daily range): BP systolic 125–140; BP diastolic 64–79; PULSE 71–83; RESP 16–20; TEMP 97.1–98.3; O2SAT 92–95
[2017-05-25] MEDS: ENOXAPARIN SODIUM 30 MG/0.3 ML SYRINGE SQ SCH (02:44)
[2017-05-25] MEDS: METHOCARBAMOL 500 MG TAB PO SCH ×3 (02:48→18:02)
--- NOTE | 2017-05-25 06:46 | PD.ORT.PN ---
Subjective Subjective Remarks Is resting comfortably with no new complaints. Objective Vitals Vital Signs Date Time Temp Pulse Resp B/P (MAP) Pulse Ox O2 Delivery O2 Flow Rate FiO2 05/25/17 00:35 97.1 71 16 127/64 (85) 94 05/24/17 20:55 98.8 75 17 126/60 (82) 95 05/24/17 20:34 Room Air 05/24/17 16:00 97.0 69 18 123/69 (87) 94 05/24/17 11:00 97.2 82 18 121/71 (88) 93 05/24/17 09:47 92 21 05/24/17 09:09 Room Air 05/24/17 07:22 97.7 75 18 135/55 (81) 94 I/O 05/24/17 05/24/17 05/24/17 05/25/17 05/25/17 05/25/17 07:00 15:00 23:00 07:00 15:00 23:00 Intake Total 880 ml 960 ml Output Total 700 ml 1900 ml Balance 180 ml -940 ml Intake Oral 880 ml 960 ml Output Urine Total 700 ml 1900 ml # Voids 2 # Bowel Movements 0 0 Result Diagram: 05/23/17 0356 05/23/17 0356 Imaging Last 24 hours Impressions Chest X-Ray 05/18/17 0600 Signed Impressions: Service Date/Time: Thursday, May 18, 2017 05:09 - CONCLUSION: No significant change has occurred. Miguel Sandra MD Objective Remarks Left upper extremity: Rash healing well. Skin is intact over clavicle. No erythema or drainage. Continues to have dressings over elbow. Distally intact sensation with full extension and flexion of all fingers Assessment & Plan Assessment and Plan 1) Left scapula and clavicle fracture Nonweightbearing left upper extremity daily dressing changes with bacitracin applied daily on any road rash Nothing by mouth after midnight Surgery tomorrow morning for open reduction internal fixation of left clavicle Sign consents karishma and NWB at all times scripts on chart Isidro Anders Jr. May 25, 2017 06:46
[2017-05-25] MEDS: FAMOTIDINE 20 MG TAB PO SCH ×2 (08:11→20:30)
[2017-05-25] MEDS: MAGNESIUM HYDROXIDE SUSP 30 ML CUP PO SCH ×2 (08:11→20:31)
[2017-05-25] MEDS: DOCUSATE SODIUM 50 MG/SENNA 8.6 MG TAB PO SCH ×2 (08:11→20:30)
[2017-05-25] MEDS: levETIRAcetam 500 MG TAB PO SCH (08:11)
[2017-05-25] MEDS: LACTULOSE SYRUP 20 GM/30 ML CUP PO PRN (08:11)
[2017-05-25] MEDS: oxyCODONE/ACETAMINOPHEN 10 MG/325 MG TAB PO PRN ×4 (08:12→21:01)
[2017-05-25] MEDS: BACITRACIN TOP OINT 15 GM TUBE TOPICAL SCH ×2 (08:15→20:46)
[2017-05-25] MEDS: SODIUM CHLORIDE 0.9% FLUSH 10 ML FLUSH IV FLUSH SCH ×2 (08:15→21:00)
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
[2017-05-25] MEDS: ACETAMINOPHEN 325 MG TAB PO PRN (20:31)
[2017-05-26] VITALS: BP 121/68; PULSE 83; RESP 18; TEMP 97.6; O2SAT 97
[2017-05-26] MEDS: METHOCARBAMOL 500 MG TAB PO SCH ×3 (02:55→17:03)
[2017-05-26 04:00] VITALS: BP 120/61; PULSE 78; RESP 20; TEMP 97.7; O2SAT 94
--- NOTE | 2017-05-26 06:37 | PD.ORT.PN ---
Subjective Subjective Remarks Is resting comfortably with no new complaints. Objective Vitals Vital Signs Date Time Temp Pulse Resp B/P (MAP) Pulse Ox O2 Delivery O2 Flow Rate FiO2 05/26/17 00:00 97.6 83 18 121/68 (85) 97 05/25/17 20:00 98.3 80 20 140/74 (96) 95 05/25/17 17:57 95 21 05/25/17 16:00 98.2 77 18 125/73 (90) 95 05/25/17 12:00 97.6 83 18 136/79 (98) 95 05/25/17 09:43 92 05/25/17 08:12 97.4 80 18 139/71 (93) 92 05/25/17 07:28 Room Air I/O 05/25/17 05/25/17 05/25/17 05/26/17 05/26/17 05/26/17 07:00 15:00 23:00 07:00 15:00 23:00 Intake Total 960 ml 600 ml Output Total 750 ml 1300 ml Balance 210 ml -700 ml Intake Oral 960 ml 600 ml Output Urine Total 750 ml 1300 ml # Voids 3 # Bowel Movements 0 0 Result Diagram: 05/23/17 0356 05/23/17 0356 Imaging Last 24 hours Impressions Chest X-Ray 05/18/17 0600 Signed Impressions: Service Date/Time: Thursday, May 18, 2017 05:09 - CONCLUSION: No significant change has occurred. Miguel Sandra MD Objective Remarks Left upper extremity: Rash healing well. Skin is intact over clavicle. No erythema or drainage. Continues to have dressings over elbow. Distally intact sensation with full extension and flexion of all fingers Assessment & Plan Assessment and Plan 1) Left scapula and clavicle fracture Nonweightbearing left upper extremity daily dressing changes with bacitracin applied daily on any road rash Nothing by mouth Surgery today for open reduction internal fixation of left clavicle Sign consents karishma and NWOrin at all times scripts on chart Isidro Anders Jr. May 26, 2017 06:37
[2017-05-26] MEDS ORDERED: GENTAMICIN SULFATE 80 MG/2 ML VIAL ONE (07:28)
[2017-05-26] MEDS ORDERED: METOPROLOL TARTRATE 25 MG TAB PO PRN (07:45)
[2017-05-26] MEDS ORDERED: LACTATED RINGER'S 1000 ML IV PRN (07:45)
[2017-05-26] MEDS ORDERED: CHLORHEXIDINE GLUCONATE 2 % 1 PACK (2 CLOTHS) TOPICAL PRN (07:45)
[2017-05-26] MEDS ORDERED: POVIDONE IODINE 5% (ANTISEPSIS KIT) 4 APPLICATIONS EACH NARE PRN (07:45)
[2017-05-26 07:47] VITALS: BP 127/65; PULSE 77; RESP 19; TEMP 98.2; O2SAT 94
--- NOTE | 2017-05-26 08:03 | EKG ---
Date Performed: 05/26/2017 Time Performed: 05:16:34 PTAGE: 57 years EKG: Sinus rhythm Normal ECG NO PREVIOUS TRACING DOCTOR: Juanita Polanco Interpretating Date/Time 05/26/2017 08:01:24
[2017-05-26] MEDS ORDERED: VANCOMYCIN HCL 1000 MG VIAL ONE (08:54)
[2017-05-26] MEDS ORDERED: BUPIVACAINE/EPINEPHRINE 0.5% PF 30 ML VIAL ONE (08:55)
[2017-05-26] MEDS: MAGNESIUM HYDROXIDE SUSP 30 ML CUP PO SCH ×2 (09:00→20:03)
[2017-05-26] MEDS: FAMOTIDINE 20 MG TAB PO SCH ×2 (09:00→20:03)
[2017-05-26] MEDS: BACITRACIN TOP OINT 15 GM TUBE TOPICAL SCH ×2 (09:00→20:04)
[2017-05-26] MEDS: SODIUM CHLORIDE 0.9% FLUSH 10 ML FLUSH IV FLUSH SCH ×2 (09:00→20:03)
[2017-05-26] MEDS: DOCUSATE SODIUM 50 MG/SENNA 8.6 MG TAB PO SCH ×2 (09:00→20:03)
[2017-05-26] MEDS ORDERED: ceFAZolin INJ 1,000 MG VIAL IV ONE ×2 (09:24→12:00)
--- NOTE | 2017-05-26 09:59 | PD.OP ---
cc: Ilya Church MD Operative Report Date of Surgery: May 26, 2017 Preoperative Diagnosis: Displaced left clavicle fracture, left scapula fracture Postoperative Diagnosis: Procedure: ORIF left clavicle, closed reduction left scapula Anesthesia: Gen. Surgeon: Ilya Church Product Marketing Intern(s): LEANN Camarillo PA-C The surgical procedure was assisted by my physician assistant teacher primary. My P.A. presence was necessary throughout this case for the manipulation and positioning of the surgical extremity. My P.A. was assisting me throughout the duration of this procedure. The skill set of a physician assistant teacher primary was medically necessary to complete this procedure. During the surgical case the dairy technician was working at the back table and the physician assistant teacher primary was directly assisting me. Operation and Findings: Implants used: Synthes Plan of activity: Sling, nonweightbearing left arm Patient was seen and evaluated preoperatively. Patient was found to have a displaced clavicle fracture. The risks and benefits of surgical and nonsurgical options were discussed in detail and informed consent was obtained for surgery. Patient was brought to the operating room and placed on or table. IV sedation and GETA were administered by anesthesiologist. Antibiotics were given prior to incision. Operative arm and shoulder were prepped with alcohol followed by Hibiclens and draped usual sterile fashion. Timeout procedure was performed. Procedure began with a 4 inch incision over the anterior clavicle. Subcutaneous tissue was dissected with Bovie. The fracture was now visualized. Soft tissue was retracted. Fracture was cleaned with curettes. Attention was now turned to reduction. Gentle traction was applied and fracture tenaculums were used to reduce the fracture. Fracture was manipulated to achieve excellent reduction. Multiplanar fluoroscopy confirmed well aligned fracture. K wires were used to hold provisional fixation. A clavicle plate was selected and contoured to fit appropriately. Plate was provisionally held in place K wires. 3.5 cortical screws were used to compress plate to bone. Fluoroscopy confirmed appropriate plate placement and fracture reduction. Multiple screws were placed on each side of the fracture. Multiple locking screws were placed along the distal fragment.. All Screws were predrilled and premeasured for appropriate length. Care was taken to avoid injury to neurovascular structures. Final fluoroscopy revealed well aligned fracture with well-placed hardware. Wound was thoroughly irrigated. Fascia was closed with #0 Vicryl, subcutaneous tissues closed with 3-0 Vicryl, and skin was closed with ted. Sterile dressings were applied. Patient was placed into a sling. Patient was awakened and transferred to recovery in stable condition. Needle and sponge counts were correct. Ilya Church MD May 26, 2017 09:59
[2017-05-26] MEDS ORDERED: ERGOCALCIFEROL (VIT D2) 50,000 UNIT CAP PO SCH (10:00)
[2017-05-26] MEDS ORDERED: ONDANSETRON HCL 4 MG/2 ML VIAL IVP PRN (10:00)
[2017-05-26] MEDS ORDERED: DO NOT ADM ANY ANTICOAGULANT DRUGS PRN (10:16)
[2017-05-26] MEDS ORDERED: ACETAMINOPHEN 1000 MG/100 ML 100 ML IV ONE (10:21)
[2017-05-26] MEDS ORDERED: MIDAZOLAM HCL 2 MG/2 ML VIAL ONE (10:21)
[2017-05-26] MEDS ORDERED: *morphine SULFATE 10 MG/ML PERIprocedure ONLY ONE (10:26)
[2017-05-26] MEDS: CALCIUM/VITAMIN D 250 MG/125 U TAB PO SCH ×2 (11:20→17:01)
[2017-05-26] MEDS ORDERED: SODIUM CHLOR 0.9% 250 ML INJ 250 ML IV ONE (12:00)
[2017-05-26] MEDS ORDERED: ONDANSETRON HCL 4 MG/2 ML VIAL IV ONE (12:00)
[2017-05-26] MEDS ORDERED: GLYCOPYRROLATE 1 MG/5 ML SYRINGE IV PUSH ONE (12:00)
[2017-05-26] MEDS ORDERED: DEXAMETHASONE SOD PHOS 4 MG/ML VIAL IV ONE (12:00)
[2017-05-26] MEDS ORDERED: PROPOFOL 200 MG/20 ML AMP IV ONE (12:00)
[2017-05-26] MEDS ORDERED: ROCURONIUM INJ 50 MG/5 ML SYRINGE IV PUSH ONE (12:00)
[2017-05-26] MEDS ORDERED: NEOSTIGMINE 5 MG/5 ML SYRINGE IV PUSH ONE (12:00)
[2017-05-26] MEDS ORDERED: LIDOCAINE HCL 1% PF 5 ML SYRINGE OTHER ONE (12:00)
--- NOTE | 2017-05-26 12:13 | RADRPT ---
EXAM DATE/TIME: 05/26/2017 09:35 [facility] COMPARISON: No previous studies available for comparison. INDICATIONS : Left clavicle fracture repair. OR. MEDICAL HISTORY : Pneumothorax. Rib fractures. SURGICAL HISTORY : None. ENCOUNTER: Initial ACUITY: 1 day PAIN SCORE: Non-responsive. LOCATION: Left clavicle FINDINGS: 3 images of the clavicle are recorded digitally using the C-arm in the operating room during placemen t of a clavicular plate. CONCLUSION: Intraoperative images. Kit Lopez MD on May 26, 2017 at 12:11 Board Certified Radiologist. This report was verified electronically.
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
[2017-05-26] MEDS: oxyCODONE/ACETAMINOPHEN 10 MG/325 MG TAB PO PRN (13:54)
[2017-05-26] MEDS: fentaNYL 50 MCG/HR PATCH T-DERMAL SCH (13:56)
[2017-05-26] MEDS: REMOVE OLD DURAGESIC (FENTANYL) PATCH T-DERMAL SCH (13:56)
[2017-05-26 15:38] VITALS: BP 134/75; PULSE 73; RESP 19; TEMP 95.5; O2SAT 97
[2017-05-26] MEDS: ceFAZolin 2 GM PREMIX 50 ML IV SCH (17:01)
[2017-05-26 17:41] VITALS: O2SAT 97
[2017-05-26 20:00] VITALS: BP 143/73; PULSE 88; RESP 16; TEMP 98.5; O2SAT 94
[2017-05-26] MEDS: LACTULOSE SYRUP 20 GM/30 ML CUP PO PRN (20:03)
[2017-05-26] MEDS: HYDROmorphone HCL PF 2 MG/ML VIAL IV PRN (20:04)
[2017-05-26] MEDS ORDERED: HYDROmorphone HCL PF 2 MG/ML VIAL IV PRN (21:15)
[2017-05-27] VITALS (7 sets, daily range): BP systolic 119–144; BP diastolic 6–74; PULSE 77–94; RESP 15–18; TEMP 97–97.9; O2SAT 91–96
[2017-05-27] MEDS: ACETAMINOPHEN/HYDROcodone 325 MG/7.5 MG TAB PO PRN ×6 (01:03→20:17)
[2017-05-27] MEDS: ceFAZolin 2 GM PREMIX 50 ML IV SCH ×2 (01:04→08:38)
[2017-05-27] MEDS: METHOCARBAMOL 500 MG TAB PO SCH ×3 (03:14→18:42)
--- NOTE | 2017-05-27 06:35 | PD.ORT.PN ---
Subjective Subjective Remarks POD 1 s/p ORIF left clavicle fx s/p left scapular neck fx s/p I&D left posterior foot by Dr Leon doing well. pain controlled. no new complaints. Objective Vitals Vital Signs Date Time Temp Pulse Resp B/P (MAP) Pulse Ox O2 Delivery O2 Flow Rate FiO2 05/27/17 00:00 97.8 94 15 119/74 (89) 91 05/26/17 20:00 98.5 88 16 143/73 (96) 94 05/26/17 17:41 97 21 05/26/17 15:38 95.5 73 19 134/75 (94) 97 05/26/17 10:45 74 12 147/75 (99) 96 Nasal Cannula 2 05/26/17 10:30 72 12 153/77 (102) 95 Room Air 05/26/17 10:15 97.6 85 12 146/69 (94) 98 Nasal Cannula 2 05/26/17 07:47 98.2 77 19 127/65 (85) 94 I/O 05/26/17 05/26/17 05/26/17 05/27/17 05/27/17 05/27/17 07:00 15:00 23:00 07:00 15:00 23:00 Intake Total 1240 ml Output Total 150 ml Balance 1090 ml Intake Oral 240 ml Other 1000 ml Estimated Blood Loss 150 ml # Voids 1 # Bowel Movements 1 Result Diagram: 05/23/17 0356 05/23/17 0356 Imaging Last 24 hours Impressions Chest X-Ray 05/18/17 0600 Signed Impressions: Service Date/Time: Thursday, May 18, 2017 05:09 - CONCLUSION: No significant change has occurred. Miguel Sandra MD Objective Remarks LUE: dressing clean and dry. intact. NVI. +sling LLE: dressing intact. removed and incision visualized. incision clean and dry. healing well. small area of bruising posteriorly. DF to neutral with mild pain Assessment & Plan Assessment and Plan 1) Left scapula and clavicle fracture s/p ORIF Clavicle - POD 1 -NWB -daily dressing changes POD 2 -CM for rehab placement -plan for DC to rehab -f/u with [facility] or [facility] in 2 weeks 2) Left Foot laceration s/p I&D and wound closure by Dr Leon - POD 12 -daily dressing changes with xeroform/4x4/PORTIA -progress to 50%WB LLE -work on ankle motion Michael Peterson/First Travis SMITH May 27, 2017 06:35
[2017-05-27] MEDS ORDERED: FENT50T T-DERMAL (07:05)
[2017-05-27] MEDS ORDERED: CHOL1000 PO (07:05)
[2017-05-27] MEDS ORDERED: CALC250 PO (07:05)
[2017-05-27] MEDS: DOCUSATE SODIUM 50 MG/SENNA 8.6 MG TAB PO SCH ×2 (08:38→20:18)
[2017-05-27] MEDS: MAGNESIUM HYDROXIDE SUSP 30 ML CUP PO SCH ×2 (08:38→20:17)
[2017-05-27] MEDS: FAMOTIDINE 20 MG TAB PO SCH ×2 (08:38→20:17)
[2017-05-27] MEDS: CALCIUM/VITAMIN D 250 MG/125 U TAB PO SCH ×3 (08:38→18:42)
[2017-05-27] MEDS: BACITRACIN TOP OINT 15 GM TUBE TOPICAL SCH (09:00)
[2017-05-27] MEDS ORDERED: CHOLECALCIFEROL (VIT D3) 1000 UNIT TAB PO SCH (09:00)
[2017-05-27] MEDS: SODIUM CHLORIDE 0.9% FLUSH 10 ML FLUSH IV FLUSH SCH ×2 (09:00→20:17)
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
== END 2017-05-27 21:06 | DRG 957 ==
LOC: NEPI 16:08 → NEDA 16:41 → EDBD 16:41 → N03A 17:44 → N06A 05-16 21:49
PROVIDERS: ADMIT Surgery Trauma Surgery; ATTEND Surgery Trauma Surgery
PROC: 0JDR3ZZ Extraction of Left Foot Subcutaneous Tissue and Fascia, Percutaneous Approach (ICD-10-PCS; 2017-05-15)
PROC: 0W9B30Z Drainage of Left Pleural Cavity with Drainage Device, Percutaneous Approach (ICD-10-PCS; 2017-05-15)
PROC: 0HQ0XZZ Repair Scalp Skin, External Approach (ICD-10-PCS; 2017-05-15)
PROC: 0HD0XZZ Extraction of Scalp Skin, External Approach (ICD-10-PCS; 2017-05-15)
PROC: 0PS6XZZ Reposition Left Scapula, External Approach (ICD-10-PCS; 2017-05-26)
PROC: 0PSB04Z Reposition Left Clavicle with Internal Fixation Device, Open Approach (ICD-10-PCS; principal; 2017-05-26 08:22)
DX: S06.369A Traumatic hemorrhage of cerebrum, unspecified, with loss of consciousness of unspecified duration, initial encounter (principal); S22.5XXA Flail chest, initial encounter for closed fracture; G93.6 Cerebral edema; J80 Acute respiratory distress syndrome; S27.2XXA Traumatic hemopneumothorax, initial encounter; S02.40FA Zygomatic fracture, left side, initial encounter for closed fracture; G93.89 Other specified disorders of brain; S22.051A Stable burst fracture of T5-T6 vertebra, initial encounter for closed fracture; F02.81 Dementia in other diseases classified elsewhere, unspecified severity, with behavioral disturbance; S91.312A Laceration without foreign body, left foot, initial encounter; S42.022A Displaced fracture of shaft of left clavicle, initial encounter for closed fracture; S01.01XA Laceration without foreign body of scalp, initial encounter; J45.909 Unspecified asthma, uncomplicated; H91.90 Unspecified hearing loss, unspecified ear; S02.19XA Other fracture of base of skull, initial encounter for closed fracture; S91.012A Laceration without foreign body, left ankle, initial encounter; R40.2412 Glasgow coma scale score 13-15, at arrival to emergency department; S42.192A Fracture of other part of scapula, left shoulder, initial encounter for closed fracture; M62.81 Muscle weakness (generalized); Z87.891 Personal history of nicotine dependence; V23.4XXA Motorcycle driver injured in collision with car, pick-up truck or van in traffic accident, initial encounter
CPT/HCPCS: 12002; 32551; 70450; 70486; 71045; 71260; 72125; 72129; 72132; 72170; 73000; 73020; 73600; 73620; 74177; 76000; 80048; 80053; 83735; 85025; 85610; 85730; 86850; 86900; 86901; 86920; 87641; 90471; 93005; 94150; 94640; 94664; 94667; 94668; 96374; 96375; 96376; 99156; 99157; 99291; C1713; G0390; J0131; J0330; J0690; J1100; J1170; J1580; J1650; J1953; J2250; J2270; J2405; J2710; J3010; J3370; J7030; J7050; J7120; J7613; Q9967

== ENCOUNTER 2017-06-09 20:52 | Emergency (ER) | payer SELFPAY ==
[~2017-06-09 20:52] MED LIST changes: +CALC250 PO; +CHOL1000 PO; -DEXAMETHASONE SOD PHOS 4 MG/ML VIAL IV ONE; +ENDO10TA8 PO; +ENOX30P SQ; +FENT50T T-DERMAL; -LACTATED RINGER'S 1000 ML INJ 1,000 ML IV ONE; -LIDOCAINE HCL 1% PF 5 ML SYRINGE OTHER ONE; +Lactulose Liq PO; +MAGN30S PO; +METH500T3 PO; -ONDANSETRON HCL 4 MG/2 ML VIAL IV ONE; +PERI PO; -PROPOFOL 200 MG/20 ML AMP IV ONE; -ROCURONIUM INJ 50 MG/5 ML SYRINGE IV PUSH ONE; -SUCCINYLCHOLINE CHLORIDE 200 MG/10 ML VIAL IV ONE
[2017-06-09 21:41] VITALS: BP 129/61; PULSE 88; RESP 16; TEMP 98.5
[2017-06-09 22:06] VITALS: BP 136/66; PULSE 78; RESP 18; O2SAT 96
[2017-06-09] MEDS ORDERED: OXYC1TAB36 PO (22:09)
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
--- NOTE | 2017-06-09 22:50 | RADRPT ---
EXAM DATE/TIME: 06/09/2017 22:28 [facility] COMPARISON: CT BRAIN W/O CONTRAST, May 20, 2017, 10:37. INDICATIONS : Prior recent trauma, now with unequal pupils. RADIATION DOSE: 56.35 CTDIvol (mGy) MEDICAL HISTORY : Prior hemorrhage. SURGICAL HISTORY : None. ENCOUNTER: Initial ACUITY: 1 day PAIN SCALE: 0/10 LOCATION: cranial TECHNIQUE: Multiple contiguous axial images were obtained of the head. Using automated exposure control and adj ustment of the mA and/or kV according to patient size, radiation dose was kept as low as reasonably a chievable to obtain optimal diagnostic quality images. DICOM format image data is available electro nically for review and comparison. FINDINGS: CEREBRUM: Prior CT on 05/20/14 demonstrated right temporal hemorrhages and surrounding edema. On today's examin ation, there is a small residual area of decreased attenuation in the lateral right temporal region m easuring 1.7 x 0.8 cm. The blood products are isodense to zheng matter. No evidence of mass effect; the right temporal horn is patent and symmetric in size with the contralateral side. No new extra ax ial fluid or blood. Left hemisphere is intact. The ventricles are normal in size. No evidence of m idline shift. POSTERIOR FOSSA: The cerebellum and brainstem are intact. The 4th ventricle is midline. The cerebellopontine angle i s unremarkable. EXTRACRANIAL: The visualized portion of the orbits is intact. SKULL: The calvaria is intact. No evidence of skull fracture. CONCLUSION: The right temporal hemorrhages are now isodense with zheng matter. There is a small residual area of encephalomalacia or edema in the posterior lateral right middle cranial fossa. No new findings. Kit Lopez MD on June 09, 2017 at 22:44 Board Certified Radiologist. This report was verified electronically.
--- NOTE | 2017-06-09 22:56 | RADRPT ---
EXAM DATE/TIME: 06/09/2017 22:30 [facility] COMPARISON: No previous studies available for comparison. INDICATIONS : Prior soft tissue trauma, evaluate for osteomyelitis. RADIATION DOSE: 7.94 CTDIvol (mGy) MEDICAL HISTORY : None SURGICAL HISTORY : None. ENCOUNTER: Initial ACUITY: 1 day PAIN SCALE: 4/10 LOCATION: Left calcaneal area. TECHNIQUE: Volumetric scanning of the foot was performed. Using automated exposure control and adjustment of th e mA and/or kV according to patient size, radiation dose was kept as low as reasonably achievable to obtain optimal diagnostic quality images. DICOM format image data is available electronically for re view and comparison. FINDINGS: There are minimally fractures of the plantar protuberance of the 2nd and 3rd multangular bones there is focal soft tissue swelling about the distal medial talus and there is an irregular area of lucency subcortical adjacent to the scapholunate joint. The cortex is thin, but appears to be intact. No d eep soft tissue gas seen. There is dislocation of the 2nd MTP joint would be metatarsus displaced pl palak. The cortical margins about the 2nd and MTP joint remaining intact.. CONCLUSION: 1. Focal osteoporosis in the subcortical medial distal talus adjacent to soft tissue thickening. Thi s could represent regional osteoporosis or a manifestation of osteomyelitis. 2. Plantar dislocation of the 2nd metatarsus at the MTP joint. 3. Nondisplaced fractures of the plantar protuberances of the 2nd and 3rd multangular bones. Kit Lopez MD on June 09, 2017 at 22:48 Board Certified Radiologist. This report was verified electronically.
[2017-06-10] MEDS ORDERED: LEVOFLOXACIN 750 MG PREMIX INJ 150 ML IV ONE
[2017-06-10] MEDS ORDERED: LEVA750T9 PO (00:41)
[2017-06-10 01:02] LABS: AUTOMATED NEUTROPHIL # 4.7 TH/MM3 (1.8-7.7); BASOPHIL # 0.1 TH/MM3 (0-0.2); BASOPHIL % 0.9 % (0.0-2.0); EOSINOPHIL # 1.3 TH/MM3 (0-0.4); EOSINOPHIL % 13.5 % (0.0-4.0); HEMATOCRIT 36.5 % (39.0-51.0); HEMOGLOBIN 12.3 GM/DL (13.0-17.0); LYMPH % 28.1 % (9.0-44.0); LYMPHOCYTE # 2.7 TH/MM3 (1.0-4.8); MEAN CELL VOLUME 95.1 FL (80.0-100.0); MEAN CORPUSCULAR HEMOGLOBIN 32.1 PG (27.0-34.0); MEAN CORPUSCULAR HGB CONC 33.8 % (32.0-36.0); MEAN PLATELET VOLUME 7.3 FL (7.0-11.0); MONO % 8.6 % (0.0-8.0); MONOCYTE # 0.8 TH/MM3 (0-0.9); NEUT % 48.9 % (16.0-70.0); PLATELET COUNT 388 TH/MM3 (150-450); RED BLOOD COUNT 3.84 MIL/MM3 (4.50-5.90); RED CELL DISTRIBUTION WIDTH 13.6 % (11.6-17.2); WHITE BLOOD COUNT 9.6 TH/MM3 (4.0-11.0)
--- NOTE | 2017-06-11 22:51 | EKG ---
Date Performed: 06/09/2017 Time Performed: 22:04:24 PTAGE: 57 years EKG: Sinus rhythm NORMAL ECG Since the prior tracing, there has been no significant change DOCTOR: Konstantin Marinelli Interpretating Date/Time 06/11/2017 22:50:19
== END 2017-06-10 02:09 | disposition home or self-care (01) ==
LOC: NEPE 20:52
DX: S99.929D Unspecified injury of unspecified foot, subsequent encounter (principal); L03.116 Cellulitis of left lower limb; S09.90XD Unspecified injury of head, subsequent encounter; V29.9XXD Motorcycle rider (driver) (passenger) injured in unspecified traffic accident, subsequent encounter
CPT/HCPCS: 70450; 73700; 85025; 87040; 93005; 96365; 96366; 99285; J1956